=== PATIENT | male | born 1950 | race Caucasian/White ===

== ENCOUNTER → 2017-11-03 | Outpatient (CLI) | payer MEDICARE ==
--- NOTE | 2017-11-03 11:12 | US ---
EXAM DESCRIPTION: Abdomen sonogram, complete CLINICAL HISTORY: EPIGASTRIC PAIN COMPARISON: [None.] FINDINGS: Gallbladder is normal . Gallbladder wall thickness 3 mm Common bile duct measures 3-4 mm in the hao hepatis. Liver is mildly increased in echotexture consistent with fatty infiltration. Normal size. No focal abnormality Pancreas is suboptimally evaluated because of the body habitus and some overlying bowel gas shadowing. Spleen normal in size and echotexture Visualized abdominal aorta and inferior vena cava are normal Right kidney and left kidney are normal in size and echotexture. No hydronephrosis. Nonshadowing echogenic foci are seen in both kidneys. 6 mm lower pole right kidney. 7 and 5 mm mid left kidney. These are nonspecific, located in the renal cortex and could be angiomyolipomas. Nonshadowing stones possible. Single small cysts in each kidney 1.6 cm on the right and 1.3 cm on the left IMPRESSION: Normal gallbladder sonogram Mild fatty infiltration of the liver Nonshadowing echogenic foci in the kidneys. Small angiomyolipoma versus nonshadowing stones Suboptimal evaluation of the pancreas secondary to body habitus and some overlying bowel gas Electronically signed by: Paul Isabel MD 11/03/2017 11:11 AM [facility]
--- NOTE | 2017-11-03 14:34 | NM ---
EXAM DESCRIPTION: Hepatobiliary w/CCK CLINICAL HISTORY: 67 years, Male, NAUSEA COMPARISON: Abdominal ultrasound FINDINGS: Patient injected with 7.8 mCi technetium 90 9M tetrofosmin. Sequential images of the right upper quadrant show liver intrahepatic ducts, extrahepatic ducts gallbladder and small bowel. Patient ingested fatty meal. No symptoms are reported by the technologist. Ejection fraction is 40%. IMPRESSION: Normal visualization the gallbladder. Appropriate ejection fraction following fatty meal. No symptoms reported by the technologist Electronically signed by: Imer Valdez MD 11/03/2017 2:33 PM [facility]
== END | disposition home or self-care (01) ==
LOC: NM 09:04
PROVIDERS: ATTEND Internal Medicine Gastroenterology
DX: R10.13 Epigastric pain (principal); R11.0 Nausea; K76.0 Fatty (change of) liver, not elsewhere classified
CPT/HCPCS: 76700; 78227; A9537